=== PATIENT | male | born 1955 | race Caucasian/White ===

== ENCOUNTER 2020-02-08 18:11 | Emergency (ER) | payer OTHER ==
[2020-02-08] MEDS ORDERED: Bupivacaine 0.25% 10 ML SDV INJECT ONE (18:22)
[2020-02-08] MEDS ORDERED: Cephalexin 250 MG Cap PO ONE (19:31)
[2020-02-08] MEDS ORDERED: Bacitracin/Neomycin/Polymyxin B Oint 0.9 GM U/D Packet TOP ONE (19:31)
--- NOTE | 2020-02-08 19:37 | EDM.PDOC ---
ED HPI GENERAL MEDICAL PROBLEM - General Chief Complaint: Laceration Stated Complaint: left pointer finger laceration Time Seen by Provider: 02/08/20 18:14 Source of Information: Reports: Patient History Limitations: Reports: No Limitations - History of Present Illness INITIAL COMMENTS - FREE TEXT/NARRATIVE: Patient comes to ER with injury to left index finger. Was crushed in door of a safe. Pain 08/05. No other complaints. thumb lac Pain Score (Numeric/FACES): 1 - Related Data Allergies Allergy/AdvReac Type Severity Reaction Status Date / Time No Known Allergies Allergy Verified 02/08/20 18:12 Home Meds: Home Meds Non-Formulary Medication [NF Drug] 1 tab PO BEDTIME 02/08/20 [History] cephALEXin [Keflex] 500 mg PO Q8H #21 cap 02/08/20 [Rx] Past Medical History HEENT History: Reports: Retinal Detachment, Other (See Below) Other HEENT History: left eye Genitourinary History: Reports: Renal Calculus Neurological History: Reports: Concussion - Past Surgical History HEENT Surgical History: Reports: Tonsillectomy Social & Family History - Tobacco Use Smoking Status *Q: Never Smoker Second Hand Smoke Exposure: No - Caffeine Use Caffeine Use: Reports: Soda Other Caffeine Use: 3 pops a day - Recreational Drug Use Recreational Drug Use: No ED ROS GENERAL - Review of Systems Review Of Systems: See Below Musculoskeletal: Reports: Other (distal left index finger pain) Skin: Reports: Wound (distal left index finger) Neurological: Denies: Numbness, Paresthesia, Tingling, Weakness Psychiatric: Reports: No Symptoms ED EXAM, SKIN/RASH Exam: See Below Exam Limited By: No Limitations General Appearance: Alert, WD/WN, No Apparent Distress Eye Exam: Bilateral Eye: EOMI, PERRL Throat/Mouth: Normal Voice, No Airway Compromise Head: Atraumatic, Normocephalic Neck: Supple Respiratory/Chest: No Respiratory Distress Extremities: Other (exam of left hand shows crush injury/swelling left index finger involving distal phalanx. Laceration extends from side of finger and alongside nail. Nail bed and nail appear intact. NVI. Good cap refill. Tendon function appears intact/no deformity) Neurological: Alert, Oriented, Normal Cognition, Normal Gait Psychiatric: Normal Affect, Normal Mood Skin: Warm, Dry, Other (mild amount of bleeding from wound on fingertip) ED SKIN PROCEDURES - Laceration/Wound Repair Left Distal Digit - 2nd (Index) Appearance: Subcutaneous, Irregular, Clean Distal NVT: Neuro & Vascular Intact, No Tendon Injury Anesthetic Type: Digital Local Anesthesia - Lidocaine (Xylocaine): 1% Plain (1cc) Local Anesthesia - Bupivicaine (Marcaine): 0.25% Plain (5cc) Skin Prep: Providone-Iodine (Betadine) Exploration/Debridement/Repair: Wound Explored, Explored to Base, No Foreign Material Found Closed with: Sutures Lac/Wound length In cm: 3.5 Suture Size: 3-0 Suture Type: Nylon, Simple (1), Mattress (3) Drain Placement: No Sterile Dressing Applied: Nurse Tetanus Status Addressed: Yes Complications: No Course - Vital Signs Last Recorded V/S: Last Vital Signs Temp 36.7 C 02/08/20 18:14 Pulse 69 02/08/20 18:14 Resp 18 02/08/20 18:14 BP 130/81 02/08/20 18:14 Pulse Ox 98 02/08/20 18:14 - Orders/Labs/Meds Orders: Active Orders 24 hr Category Date Time Status Fingers Second Digit Lt F1 [CR] Stat Exams 02/08/20 18:38 Ordered Fingers Thumb Lt FA [CR] Stat Exams 02/08/20 18:22 Stop Req Meds: Medications Discontinued Medications Generic Name Dose Route Start Last Admin Trade Name Freq PRN Reason Stop Dose Admin Bupivacaine HCl 10 ml 02/08/20 18:22 02/08/20 18:46 Sensorcaine-Mpf 0.25% INJECT 02/08/20 18:23 10 ml ONETIME ONE Administration Cephalexin 500 mg 02/08/20 19:31 Keflex PO 02/08/20 19:32 ONETIME ONE Lidocaine HCl 5 ml 02/08/20 18:22 02/08/20 18:46 Xylocaine-Mpf 1% INJECT 02/08/20 18:23 5 ml ONETIME ONE Administration Neomycin/Polymyxin/Bacitracin 1 each 02/08/20 19:31 Triple Antibiotic Oint TOP 02/08/20 19:32 ONETIME ONE - Re-Assessments/Exams Free Text/Narrative Re-Assessment/Exam: Xray confirmed small fracture of distal phalanx of index finger. Keflex ordered. Laceration repaired. Wound care reviewed. To tow picker rest of antibiotic tomorrow and continue course of treatment. Precautions reviewed. To follow up as needed. Departure - Departure Time of Disposition: 19:55 Disposition: Home, Self-Care 01 Condition: Good Clinical Impression: Open fracture of distal phalanx of digit of left hand - Discharge Information *PRESCRIPTION DRUG MONITORING PROGRAM REVIEWED*: Not Applicable *COPY OF PRESCRIPTION DRUG MONITORING REPORT IN PATIENT ALVIN: Not Applicable Instructions: Finger Fracture, Adult, [id number], Laceration Care, Adult, [id number] Referrals: PCP,Unknown [Primary Care Provider] - Forms: ED Department Discharge Additional Instructions: Keep wound clean as discussed. Daily soaks followed by antibiotic ointment and clean dressings. Get rechecked if you notice any signs of infection or have any other problems. Sutures out at end of next week on Thursday. You can come to the ER and have them call me to come and take them out in the afternoon. If you prefer, you can make an appointment at the hospital clinic and have them taken out there that day. Ibuprofen or Tylenol for pain. Sepsis Event Note (ED) - Evaluation Sepsis Screening Result: No Definite Risk - Focused Exam Vital Signs: Vital Signs Temp Pulse Resp BP Pulse Ox 02/08/20 18:14 36.7 C 69 18 130/81 98 - My Orders Last 24 Hours: My Active Orders 02/08/20 18:22 Fingers Thumb Lt FA [CR] Stat 02/08/20 18:38 Fingers Second Digit Lt F1 [CR] Stat - Assessment/Plan Last 24 Hours: My Active Orders 02/08/20 18:22 Fingers Thumb Lt FA [CR] Stat 02/08/20 18:38 Fingers Second Digit Lt F1 [CR] Stat
== END 2020-02-08 19:35 | disposition home or self-care (01) ==
LOC: LL.ED 18:11
DX: S62.631B Displaced fracture of distal phalanx of left index finger, initial encounter for open fracture (principal); W23.0XXA Caught, crushed, jammed, or pinched between moving objects, initial encounter
CPT/HCPCS: 12002; 73140-F1; 99283-25; 99284; A9270-GY; J2001; J3490